=== PATIENT | female | born 1945 | race Two or more races ===

== ENCOUNTER → 2025-02-16 | Day surgery (SDC) | payer MEDICARE, MEDICAID ==
[2025-02-09 11:25] LABS: Hematocrit 43.4 % (36.0-46.0); Hemoglobin 14.5 g/dL (12.2-16.2); Mean Corpuscular Hemoglobin 30.0 pg (28.0-32.0); Mean Corpuscular Volume 89.6 fL (80.0-100.0); Nucleated Red Blood Cells % 0.0 %
[2025-02-09 11:40] LABS: INR 0.98 (0.9-1.15); Partial Thromboplastin Time 27.4 SEC (24.5-34.5); Prothrombin Time 10.4 sec (9.3-11.8)
[2025-02-09 11:42] LABS: Alanine Aminotransferase 12 U/L (7-40); Alkaline Phosphatase 62 U/L (46-116); Anion Gap 7 (5-15); BUN/Creatinine Ratio 20.0 (10.0-20.0); Blood Urea Nitrogen 13 mg/dL (9-23); Calcium 9.9 mg/dL (8.7-10.4); Carbon Dioxide 34 mmol/L (20-31); Chloride 100 mmol/L (98-107); Glucose 125 mg/dL (74-106); Potassium 4.3 mmol/L (3.5-5.1); Sodium 141 mmol/L (136-145); Total Protein 6.4 g/dL (5.7-8.2)
[2025-02-09 11:43] LABS: Bilirubin, Total 0.6 mg/dL (0.2-1.0)
[2025-02-09 11:47] LABS: Albumin 4.3 g/dL (3.2-4.8)
[2025-02-09 12:03] LABS: Urine Protein, UAD Negative (Negative)
[~2025-02-16] VITALS: Ht 165.1 cm; Wt 79.4 kg
[~2025-02-16] MED LIST: AMLO1TAB23 PO; CHOLCAP4 PO; HYDROmorphone HCL 2 MG/ML VL/or syr IV PRN; LOSA-534 PO; MIDAZOLAM HCL 2MG/2ML 2ml VIAL (1mg/ml) ONE; MULT-1018 OR; MUPI2CRE17 EX; ONDANSETRON HCL 4 MG/2 ML VIAL IV ONE; PIOG1TAB37 OR; PROPOFOL 10 MG/ML 20 ML IV ONE; fentaNYL CITRATE 100 MCG/2 ML VL ONE; hydrALAZINE HCL 20 MG/ML VL IV PRN
[2025-02-16] MEDS: ceFAZolin 2 GM/D5W50ml 50 ML IV ONE (13:17)
[2025-02-16] MEDS: BUPIVACAINE 0.5% P/F INJ 10 ML VIAL ONE (13:34)
[2025-02-16 13:47] VITALS: PULSE 68; RESP 17; TEMP 97.6; O2SAT 94
--- NOTE | 2025-02-16 13:49 | DVHOP2 ---
Operative Report - 2 Report Details Date: 02/16/25 Preop Diagnosis: 1. Right foot soft tissue mass 2. Right foot skin lesion 3. Right foot pain Postop Diagnosis: Same as preop Surgeon: Qasim Rivera MD Anesthesiologist: See anesthesia Anesthesia: Mac Consent: The patient was informed of the risks and benefits of the procedure. These include but are not limited to complications of anesthesia, postoperative infection, incomplete relief of symptoms, recurrence of symptoms, damage to blood vessels, nerves and tendons, deep venous thrombosis, pulmonary embolism and possible need for repeat surgery in the future. Complications: None Estimated Blood Loss: Minimal Fluids: See anesthesia Findings: Consistent with diagnosis Indications for Surgery: Worsening right foot mass Name of Procedure Performed 1. Right foot soft tissue mass excision 4.5 cm (79749) 2. Right foot skin biopsy ([id number]) Procedure Details Procedure Details: PRE-PROCEDURE INFORMATION: In the pre-op holding area, the extremity to be operated on was clearly marked and the patient verified correct laterality of the marking. The patient was transferred to the OR table and placed in a supine position. A timeout was performed in which identification of the correct patient, procedure, location, and materials was done. The _ foot and leg were prepped and draped in normal sterile fashion. The foot and leg were exsanguinated and the _ tourniquet was inflated to 250 mmHg. DESCRIPTION OF PROCEDURE: Attention was directed to the right lateral posterior foot where an incision was made around the mass to allow for complete excision below the subfascial layers. Using sharp and blunt dissection, the soft tissue mass was able to be delineated and the mass was adequately removed. The soft tissue mass was sent to pathology for evaluation. Using a curette, there appeared to be multiple superficial skin lesions surrounding the mass, dark in color. Using a 15. Blade a dermal biopsy was performed and sent off to pathology. The wound was then irrigated copiously with normal saline, and electrodesiccation was performed in the base of the wound and base of the superficial biopsies. The patient will be placed in a postoperative shoe. POSTOPERATIVE INFORMATION: The patient tolerated the above noted procedure and anesthesia well and was transferred to the PACU with vital signs stable, and vascular status intact with capillary refill intact to all digits. Postoperative instructions reviewed in detail with the patient with written instructions provided. Patient will return to clinic in approximately 10-14 days for first postoperative visit. Patient has the number of the clinic and was instructed to call prior to that time should any problems, questions, or concerns arise. Condition Good Disposition Home QASIM RIVERA DPM Feb 16, 2025 13:49
[2025-02-16 14:32] VITALS: BP 125/72; PULSE 70; RESP 20; O2SAT 96
== END | disposition home or self-care (01) ==
LOC: SUR 11:51
PROVIDERS: ATTEND Podiatrist
DX: M79.671 Pain in right foot (principal); R22.41 Localized swelling, mass and lump, right lower limb; E11.621 Type 2 diabetes mellitus with foot ulcer; E11.42 Type 2 diabetes mellitus with diabetic polyneuropathy; L97.515 Non-pressure chronic ulcer of other part of right foot with muscle involvement without evidence of necrosis; I10 Essential (primary) hypertension
CPT/HCPCS: 11102; 28041; 36415; 80053; 81001; 82962; 85025; 85610; 85730; 88305; 88342; J0690; J2250; J2704; J3010; J3490